=== PATIENT | male | born 1990 | race Caucasian/White ===

== ENCOUNTER 2016-11-12 08:05 | Emergency (ER) | payer OTHER ==
--- NOTE | ~2016-11-12 | ER ---
PATIENT'S NAME: ROGELIO HUNTER [facility] AGE: 26 Y [address] ROOM: [place] [address] LOCATION: [facility] ADMIT DATE: 11/12/2016 ER/Outpatient Report DISCHARGE DATE: 11/12/2016 FAMILY PHYSICIAN: Filemon Lovett MD ATTENDING PHYSICIAN: Keyana Mcpherson TIME OF ARRIVAL: 0805 hours. TIME SEEN: 0818 hours. IDENTIFICATION: A 26-year-old male. CHIEF COMPLAINT: Electric shock sensation. HISTORY OF PRESENT ILLNESS: The patient states that his head, ears, eyes, tongue, and fingertips have this electric shock sensation. This suddenly onsetted a week and a half ago and has gradually been getting worse. No fall or injury. It is worse with turning his head and his eyes. No fever or chills. When asked about headache, he says "kind of" posteriorly. He describes that as a dull ache, constant. This sensation keeps him awake at night and is "annoying." No nausea or vomiting. No visual changes. No nasal congestion or drainage. No neck pain. No injury. 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 He has had a sour sensation in his abdomen for one week and nausea. No vomiting. No constipation or diarrhea. No blood in his stools. No dysuria. No weight change. No numbness. No weakness. He feels like he has to go lay down sometimes. He was started on Wellbutrin for depression 2 weeks ago, and his depressive symptoms are improved. No crying spells. No suicidal ideation. He is on Geodon for bipolar, and that is stable. He did have one angry outburst last week, but he said overall that is going well. He sees Julia Davies at [facility] here in [place], and Dr. Lovett is his primary care physician. He actually saw Dr. Lovett the last 2 days. Two days ago, he received Toradol. Yesterday, he received Demerol as maybe he was having headache or pain at that time, and he said "not really." It is the shock-like sensation that is troubling to him. It starts in his neck and radiates down his arms, across his tongue, into his finger tips. ALLERGIES: CODEINE. PATIENT'S NAME: ROGELIO HUNTER [facility] AGE: 26 Y [address] ROOM: [place] [address] LOCATION: [facility] ADMIT DATE: 11/12/2016 ER/Outpatient Report DISCHARGE DATE: 11/12/2016 FAMILY PHYSICIAN: Filemon Lovett MD ATTENDING PHYSICIAN: Keyana Mcpherson CURRENT MEDICATIONS: 1. Adderall 20 mg b.i.d. 2. Wellbutrin 300 mg daily. 3. Geodon 80 mg daily. 4. Ambien 10 mg at h.s. MEDICAL PROBLEMS: ADHD, bipolar, and insomnia. PRIOR SURGERIES: Tendon repair, right hand. SOCIAL HISTORY: The patient works at [employer], lives in [place]. Tobacco use: One can per day. Alcohol use: A couple 3 times a week. FAMILY HISTORY: No pertinent family history identified. PHYSICAL EXAMINATION: VITAL SIGNS: Height 5 feet 9 inches and weight 92.2 kg. Blood pressure 117/73, pulse 93, respirations 16, temperature 96.6, and saturation is 98%. GENERAL: A 26-year-old male, in no acute distress. HEENT: Head: Normocephalic, atraumatic. Ears: TMs translucent, both ears. Eyes: Pupils equal and reactive to light and accommodation. Extraocular movements intact. Nose: Mucosa pink, no lesions or drainage. Mouth: No lesions. Pharynx: Benign. NECK: Supple. No lymphadenopathy. No nuchal rigidity. It does reproduce his symptoms though with rotation and flexion and extension. HEART: Regular rate and rhythm. ABDOMEN: Soft, nondistended, and nontender. SKIN: [place], warm, and dry. No lesions or rashes noted. NEUROLOGIC: The patient is alert and oriented x4. Cranial nerves 2 through 12 grossly intact. Motor strength 5/5 throughout. Sensation is intact to light touch. No lower extremity edema. No musculoskeletal pain. No tenderness to palpation of the cervical, thoracic, or lumbar spine. LABORATORY WORK: Sodium 139, potassium 4.1, chloride 106, CO2 of 26, BUN 18, and creatinine 1.4. No previous creatinine available for comparison. Glucose 65. CRP 0.56. TSH 3.560. Hemoglobin 14.9, hematocrit 45.1, platelets 199, and white count 6.2. Sedimentation rate 11. Normal differential. Procalcitonin less than 0.05. Lactate 1.1. Cervical spine MRI: Mild disk desiccation, C5-6. Otherwise, normal study. PATIENT'S NAME: ROGELIO HUNTER [facility] AGE: 26 Y [address] ROOM: [place], [place] [address] LOCATION: [facility] ADMIT DATE: 11/12/2016 ER/Outpatient Report DISCHARGE DATE: 11/12/2016 FAMILY PHYSICIAN: Filemon Lovett MD ATTENDING PHYSICIAN: Keyana Mcpherson No findings to explain symptoms. Head CT: Negative per Radiology. IMPRESSION AND PLAN: Lhermitte sign, shock-like sensation, uncertain etiology. Ice as needed. No straining. Ibuprofen 400 mg t.i.d. for 1 week, take with food. Follow up with Dr. Lovett in 2 to 7 days, follow up sooner if any problems or concerns. The only other thing we discussed is the Wellbutrin is new. I do not think it is a side effect from the Wellbutrin, but there is the possibility. I advised him to continue with the Wellbutrin at this time and discuss this with Dr. Lovett. I also advised that if he continues to have persistent symptoms, he may need a neurology evaluation. The patient understands and agrees, and all questions have been answered. KEYANA MCPHERSON MD CAR/modl /[id number] d: 11/12/16 1523 t: 11/25/16 1350, OUTPATIENT REPORT
[2016-11-12 08:53] LABS: BASOPHIL % 0.5 %; EOSINOPHIL # 0.2 K/uL (0.0-0.5); HEMATOCRIT 45.1 % (37.0-53.0); HEMOGLOBIN 14.9 g/dL (12.0-17.0); IMMATURE GRANULOCYTE % 0.5 %; LYMPHOCYTE # 1.2 K/uL (0.8-4.0); LYMPHOCYTE % 18.4 %; MCH 29.3 pg (27.0-34.0); MCV 88.6 fl (83.0-98.0); MONOCYTE # 0.9 K/uL (0.0-1.0); MONOCYTE % 13.8 %; MPV 9.1 fl (9.4-12.4); NEUTROPHIL % 63.8 %; NRBC % 0 /100WBC (0-0.00); PLATELET COUNT 199 K/uL (150-450); RBC 5.09 M/uL (4.00-6.00); RDW-CV 12.7 % (11.9-14.6); WBC 6.2 K/uL (4.0-11.0)
[2016-11-12 09:54] LABS: ALBUMIN 3.8 gm/dL (3.5-5.0); ALK PHOS 59 IU/L (33-138); ALT 43 IU/L (12-78); ANION GAP 11.1 (10.0-19.0); AST 25 IU/L (10-40); BLOOD UREA NITROGEN 18 mg/dL (6-24); CHLORIDE 106 mMol/L (96-110); CO2 26 mMol/L (22-32); CREATININE 1.4 mg/dL (0.6-1.3); ESTIMATED GFR (MDRD EQUATION) > 60; POTASSIUM 4.1 mMol/L (3.7-5.1); SODIUM 139 mMol/L (135-145); TOTAL BILIRUBIN 0.3 mg/dL (0.0-1.5); TOTAL PROTEIN 7.5 g/dL (6.0-8.4)
== END 2016-11-12 10:22 | disposition disaster alternative care site (69) ==
LOC: GMED 08:05
PROVIDERS: Family Medicine
DX: R29.818 Other symptoms and signs involving the nervous system (principal); F17.220 Nicotine dependence, chewing tobacco, uncomplicated; G47.00 Insomnia, unspecified; F90.9 Attention-deficit hyperactivity disorder, unspecified type; F31.9 Bipolar disorder, unspecified; Z98.890 Other specified postprocedural states; Z79.899 Other long term (current) drug therapy; Z88.5 Allergy status to narcotic agent